=== PATIENT | female | born 1975 | race Two or more races ===

== ENCOUNTER → 2018-07-10 | Emergency (ER) | payer SELFPAY ==
[~2018-07-10] VITALS: Ht 165.1 cm; Wt 97.5 kg
[~2018-07-10] MED LIST: KETOROLAC 60 MG/2 ML VIAL. IM ONE; ORPH100T PO; diazePAM 5 MG TABLET PO ONE
[2018-07-10 19:02] VITALS: BP 133/63
--- NOTE | 2018-07-10 19:22 | PHYS DOC ---
Past Medical History Past Medical History: No Pertinent History Past Surgical History: Alcohol Use: None Drug Use: None Adult General Chief Complaint Chief Complaint: BACK PAIN OR INJURY HPI HPI Patient is a 43 year old female who presents to the ER with complaints of left sided low back pain that radiates to left hip and right heel pain after slipping on the ice and falling 3 days ago. She denies any saddle anesthesia, loss of bowel/ bladder control, numbness, tingling, or weakness. Pt rates her pain a 9/10 on the pain scale, the only thing that has helped the pain is rest, the pain is aggravated by movement and weight bearing. Review of Systems Review of Systems Constitutional: Denies fever or chills [] : Denies dysuria, increased urinary frequency, or hematuria [] Musculoskeletal: See HPI Integument: Denies rash or skin lesions [] Neurologic: Denies headache, focal weakness or sensory changes [] Current Medications Current Medications Current Medications Medications (Trade) Dose Ordered Sig/Joelle Start Time Stop Time Status Last Admin Dose Admin Diazepam (Valium) 5 mg 1X ONCE 07/10/18 19:30 07/10/18 19:31 DC 07/10/18 19:30 5 MG Ketorolac Tromethamine (Toradol Im) 30 mg 1X ONCE 07/10/18 19:30 07/10/18 19:31 DC 07/10/18 19:30 30 MG Allergies Allergies Allergies Coded Allergies Type Severity Reaction Last Updated Verified Sulfa (Sulfonamide Antibiotics) Allergy Unknown 07/10/18 Yes Physical Exam Physical Exam Constitutional: Well developed, well nourished, no acute distress, non-toxic appearance, obese. [] HENT: Normocephalic, atraumatic, bilateral external ears normal, nose normal. [] Eyes: conjunctiva normal, no discharge. [] Neck: Normal range of motion, no stridor. [] Back: No bony tenderness, L lumbar paraspinal tenderness. Extremities: R heel TTP, R ankle no tenderness, no cyanosis, no clubbing, ROM intact, no edema. [] Neurologic: Alert and oriented X 3, normal motor function, normal sensory function, no focal deficits noted. [] Psychologic: Affect normal, judgement normal, mood normal. [] Current Patient Data Vital Signs Vital Signs Date Time Temp Pulse Resp B/P (MAP) Pulse Ox O2 Delivery O2 Flow Rate FiO2 07/10/18 19:02 98.2 92 18 133/63 (86) 97 Room Air 98.2 Lab Values Laboratory Tests Test 07/10/18 18:49 POC Urine HCG, Qualitative Hcg negative (Negative) EKG EKG [] Radiology/Procedures Radiology/Procedures R foot xray negative for acute fx or dislocation, presence of heel spur as read by Dr. Ro [] Course & Med Decision Making Course & Med Decision Making Pertinent Labs and Imaging studies reviewed. (See chart for details) Dx: low back pain with sciatica, R heel pain, fall on ice, R heel spur Pt was given IM toradol and PO valium in the ER, reported some relief after meds. X-ray negative for acute findings. Pt placed in post op shoe. Follow up with PCP if sx persist, return to ER if sx worsen. Prescription for orphenadrine. Pt states she has naproxen at home that she will take. Patient verbalized an understanding of home care, medications, follow-up, and return to ED instructions and was in agreement with the plan of care. [] Dragon Disclaimer Dragon Disclaimer This electronic medical record was generated, in whole or in part, using a voice recognition dictation system. Departure Departure Impression: Primary Impression: Low back pain with left-sided sciatica Additional Impressions: Pain of right heel Heel spur Fall from slipping on ice Disposition: 01 HOME, SELF-CARE Condition: STABLE Referrals: NO PCP (PCP) Patient Instructions: Heel Spur, Sciatica, [id number] Additional Instructions: Fill prescription(s) and use as directed. Recommend application of ice, elevation, and rest of affected extremity. Wear the postop shoe that was placed in the ER as needed for comfort. Follow-up with your primary care doctor if symptoms persist. Return to the ER if your symptoms worsen. Scripts Orphenadrine Citrate (ORPHENADRINE CITRATE) 100 Mg Tablet.er 100 MG PO BID PRN for PAIN for 10 Days, #20 TAB.SR 0 Refills Prov: CINTHIA VERGARA Maggi STAFFING SPECIALIST 07/10/18 Problem Qualifiers Primary Impression: Low back pain with left-sided sciatica Chronicity: acute Back pain laterality: right Qualified Codes: M54.42 - Lumbago with sciatica, left side Additional Impressions: Heel spur Laterality: right Qualified Codes: M77.31 - Calcaneal spur, right foot Fall from slipping on ice Encounter type: initial encounter Qualified Codes: W00.9XXA - Unspecified fall due to ice and snow, initial encounter CINTHIA VERGARA APRN Jul 10, 2018 19:21
--- NOTE | 2018-07-11 00:05 | RAD ---
Three-view right foot radiographs 07/10/2018 CLINICAL HISTORY: Right heel pain for 3 days. PA, lateral and oblique digital radiographs of the right foot were obtained. Moderate enthesophyte formation is seen involving the plantar aspect of the posterior right calcaneus. No fracture or dislocation of the right foot is seen. Minimal hallux valgus deformity is noted. Mild degenerative changes are seen involving the first MTP joint. IMPRESSION: Degenerative changes are seen involving the right foot as outlined above. No acute osseous abnormality is seen. Electronically signed by: Juan Martinez MD (07/11/2018 12:02 AM) [facility]
== END | disposition home or self-care (01) ==
LOC: ER 18:21
DX: M54.42 Lumbago with sciatica, left side (principal); M77.31 Calcaneal spur, right foot; Z98.890 Other specified postprocedural states; Z88.2 Allergy status to sulfonamides; W00.0XXA Fall on same level due to ice and snow, initial encounter; Y93.89 Activity, other specified; Y92.89 Other specified places as the place of occurrence of the external cause; Y99.8 Other external cause status
CPT/HCPCS: 73630; 81025; 96372; 99283; J1885